=== PATIENT | female | born 1955 | race Hispanic/Latino ===

== ENCOUNTER → 2019-04-14 | Outpatient (CLI) | payer MEDICARE | END | disposition home or self-care (01) | LOC: RAH 13:19 | PROVIDERS: ATTEND Family Medicine | DX: Z12.31 Encounter for screening mammogram for malignant neoplasm of breast (principal) | CPT/HCPCS: 77067 ==

== ENCOUNTER 2019-06-28 10:05 | Emergency (ER) | payer MEDICARE ==
[~2019-06-28] VITALS: Ht 165.1 cm; Wt 86.6 kg
[~2019-06-28 10:05] MED LIST: CLIN300C9 PO; SODI650T PO
[2019-06-28 10:34] LABS: BILIRUBIN,URINE NEGATIVE (NEGATIVE); COLOR,URINE YELLOW (YELLOW); GLUCOSE, URINE (UA) NEGATIVE (NEGATIVE); KETONES,URINE NEGATIVE (NEGATIVE); LEUKOCYTE ESTERASE ,URINE LARGE (NEGATIVE); NITRATE,URINE NEGATIVE (NEGATIVE); OCCULT BLOOD,URINE LARGE (NEGATIVE); PROTEIN,URINE 30 mg/dL (NEGATIVE); UROBILINOGEN,URINE 0.2 mg/dL (0.2-1.0)
[2019-06-28 10:47] LABS: APPEARANCE,URINE SLIGHTLY CLOUDY (CLEAR)
[2019-06-28 11:06] LABS: BASOPHILS % (AUTO) 0.8 % (0.0-5.0); EOSINOPHILS % (AUTO) 2.4 % (0.0-8.0); LYMPHOCYTES % (AUTO) 33.6 % (21.0-51.0); MEAN CORPUSCULAR HEMOGLOBIN 31.3 pg (27.0-33.0); MEAN CORPUSCULAR HGB CONC 33.5 g/dL (32.0-36.0); MEAN CORPUSCULAR VOLUME 93.3 fL (79-99); MONOCYTES % (AUTO) 7.1 % (3.0-13.0); NEUTROPHILS % (AUTO) 56.1 % (40.0-77.0); PLATELET COUNT (AUTO) 315 K/uL (130-400); RED BLOOD CELL COUNT(AUTO) 3.43 MIL/uL (4.00-5.50); RED CELL DISTRIBUTION WIDTH 13.7 % (11.0-15.5)
[2019-06-28 11:13] LABS: CREATININE 1.5 mg/dL (0.5-1.5); POTASSIUM 4.2 mmol/L (3.5-5.1)
[2019-06-28 11:17] LABS: ALBUMIN 2.9 g/dL (3.5-5.0); BILIRUBIN,TOTAL 0.3 mg/dL (0.2-1.0); TOTAL PROTEIN, SERUM 7.8 g/dL (6.0-8.3)
[2019-06-28 11:37] LABS: AMORPHOUS SEDIMENT,UR Few /LPF (None Seen); BACTERIA,URINE Moderate /HPF (None Seen); SQUAMOUS EPITHELIAL CELL,UR Rare /HPF (0-2); WBC,URINE 26-50 /HPF (0-1)
[2019-06-28 11:54] LABS: INR 0.95 (0.85-1.15)
[2019-06-28 12:10] LABS: PARTIAL THROMBOPLASTIN TIME 30.2 SEC (26.3-35.5)
[2019-06-28] MEDS ORDERED: SODIUM CHLORIDE 0.9% 1000ML 1,000 ML IV ONE (12:47)
[2019-06-28] MEDS ORDERED: MUPIROCIN OINTMENT 22 GM TUBE TP SCH (15:30)
== END 2019-06-28 16:01 | disposition home or self-care (01) ==
LOC: EDH 10:05
DX: T83.512A Infection and inflammatory reaction due to nephrostomy catheter, initial encounter (principal); Z90.49 Acquired absence of other specified parts of digestive tract; Z72.0 Tobacco use
CPT/HCPCS: 36415; 74176; 80053; 81001; 82150; 82550; 83605; 83690; 84484; 85025; 85610; 85730; 87040 ×2; 87804 ×2; 93005; 99285; J7030

== ENCOUNTER 2019-07-09 07:31 | Day surgery (SDC) | payer MEDICARE ==
[2019-07-07 15:52] LABS: BASOPHILS % (AUTO) 0.4 % (0.0-5.0); EOSINOPHILS % (AUTO) 1.7 % (0.0-8.0); HEMATOCRIT 31.7 % (36-48); LYMPHOCYTES % (AUTO) 27.7 % (21.0-51.0); MEAN CORPUSCULAR HEMOGLOBIN 29.1 pg (27.0-33.0); MEAN CORPUSCULAR HGB CONC 31.2 g/dL (32.0-36.0); MEAN CORPUSCULAR VOLUME 93.2 fL (79-99); MONOCYTES % (AUTO) 4.9 % (3.0-13.0); NEUTROPHILS % (AUTO) 64.9 % (40.0-77.0); PLATELET COUNT (AUTO) 527 K/uL (130-400); RED CELL DISTRIBUTION WIDTH 13.3 % (11.0-15.5); WHITE BLOOD COUNT (AUTO) 9.2 K/uL (4.8-10.8)
[2019-07-07 16:02] LABS: CREATININE 2.1 mg/dL (0.5-1.5); POTASSIUM 4.9 mmol/L (3.5-5.1)
[2019-07-07 16:06] LABS: INR 1.02 (0.85-1.15); PARTIAL THROMBOPLASTIN TIME 30.4 SEC (26.3-35.5); PROTHROMBIN TIME 10.7 SEC (9.6-11.6)
[2019-07-07 16:16] VITALS: BP 108/61
[2019-07-09] VITALS (7 sets, daily range): BP systolic 124–128; BP diastolic 61–68
[~2019-07-09] VITALS: Ht 165.1 cm; Wt 85.3 kg
[2019-07-09] MEDS ORDERED: SODIUM CHLORIDE 0.9% 1000ML 1,000 ML IV ONE (08:17)
--- NOTE | 2019-07-09 08:30 | NUR ---
TUBES BILATERAL 8 [facility] NEPHROSTOMY TUBES IN PLACE DRAINING CLEAR YELLOW URINE. DRESSING TO BOTH SITES DRY AND INTACT. Addendum: 07/09/19 at 0831 by BENITEZ CARMEN RN Amended: Links added.
[2019-07-09] MEDS ORDERED: IODIXANOL 320 MG/ML 100 ML VIAL ONE (09:24)
[2019-07-09] MEDS ORDERED: LIDOCAINE HCL 1% MDV 50ML VIAL ONE (09:25)
[2019-07-09] MEDS ORDERED: MIDAZOLAM HCL 1 MG/ML 2ML VIAL ONE (09:25)
[2019-07-09] MEDS ORDERED: FENTANYL CITRATE PF 50 MCG/1 ML 2ML VIAL ONE (09:25)
--- NOTE | 2019-07-09 09:30 | NUR ---
PROCEDURE PATIENT TAKEN TO [facility] FOR NEPHROSTOGRAM .
[2019-07-09] MEDS ORDERED: ACETAMINOPHEN 325 MG TAB PO PRN (11:30)
--- NOTE | 2019-07-09 11:45 | NUR ---
post received pt back from [employer] [employer], s/p nephrostogram, nephrostomy tube exchange of vicente nephrostomy tubes and placement of double j ureteral stent place. both tubes clamped at this time. Faiza Rn instructed in detalied to daughter to keep tubes clamped and to connect to drainage bag provided if patient developed pain or fever . to reconnect tubes to drainage bags. dressing to areas dry and intact. asymptomatic, 8french tubes in place. vs stable on arrival. will continue to monitor. daughter Abril at bedside
--- NOTE | 2019-07-09 13:05 | NUR ---
dc pt dc home via [facility],no distress noted. pt denied any pain or discomforts. vs stable. nephrostomy tube dressing dry and intact, pt accompanied by daughter. 2 drainage bag given to patient per md orders
== END 2019-07-09 13:05 | disposition home or self-care (01) ==
LOC: DAH 07:31
PROVIDERS: ATTEND Urology
DX: N13.39 Other hydronephrosis (principal); F17.210 Nicotine dependence, cigarettes, uncomplicated; Z79.2 Long term (current) use of antibiotics; Z79.899 Other long term (current) drug therapy; Z90.49 Acquired absence of other specified parts of digestive tract
CPT/HCPCS: 36415; 50693; 80048; 85025; 85610; 85730; A4215; A4221; A4222; A4223; A4663; C1725; C1729 ×2; C1769 ×4; C1894; C2617 ×2; J2250; J3010; J3490; J7030; Q9967; 50695; 99156; 99157